=== PATIENT | female | born 1935 ===

== ENCOUNTER 2017-08-27 03:46 | Emergency (ER) | payer OTHER ==
[2017-08-27] MEDS ORDERED: OXYMETAZOLINE 30 ML NASAL SPRAY ONE (03:56)
[2017-08-27] MEDS ORDERED: LIDOCAINE HCL 4% TOPICAL SOLN 50ML MM ONE (04:09)
[2017-08-27] MEDS ORDERED: ONDANSETRON 4 MG/2 ML VIAL ONE (04:16)
[2017-08-27] MEDS ORDERED: NS 1,000 ML IV ONE (04:24)
[2017-08-27] MEDS ORDERED: ONDANSETRON 4 MG/2 ML VIAL IVP ONE (04:24)
[2017-08-27] MEDS ORDERED: NS 500 ML IV ONE (04:26)
[2017-08-27 04:28] VITALS: RESP 18
[2017-08-27 04:31] LABS: PLATELET COUNT 336 10^3/uL (150-400)
[2017-08-27 04:41] LABS: INR 3.2 (0.83-1.16); PROTIME(PATIENT) 31.8 SEC (12.0-15.0)
--- NOTE | 2017-08-27 04:51 | EDPHY ---
H & P Time Seen by Provider: 08/27/17 04:07 HPI/ROS: This patient presents with right-sided epistaxis. She reports that she had 2 episodes of spontaneous epistaxis yesterday during the day the lasted 20-30 minutes final resolved with pinching her nose. She was awakened early this morning by recurrent bleeding again from the right-sided for nose. She called her daughter who brought her in by private vehicle for evaluation. She has had occasional nosebleeds in the past and had to have her near repacked a few years ago. She has recently had coryza she attributes to a viral URI there is otherwise felt well. Prior to arrival the patient had no significant lightheadedness but she started to feel lightheaded while walking in the emergency department. ROS: Constitutional: No fevers. She denies fatigue. HEENT: No recent nasal trauma. Patient complains of nasal congestion for 1 month with onset of sinus pressure intermittently over the past 5-7 days left more than right side and yellow to green discharge. Pulmonary: No dyspnea. Cardiovascular: No heart palpitations except her baseline atrial fibrillation. No chest pain. GI: Prior to arrival no nausea or vomiting. Integumentary: No complaints Neuro: No confusion. 10 point ROS is otherwise negative Past Medical/Surgical History: Atrial fibrillation Smoking Status: Never smoked Physical Exam: Initial vital signs are normal General Appearance: Pleasant 82-year-old female appears younger than her stated age Alert, no distress. Eyes: Pupils equal and round no pallor or injection. ENT, Mouth: Mucous membranes moist. Nose: Right-sided active [id number] -moderate. The patient has left maxillary sinus tenderness to percussion more than frontal swollen nasal mucosa on the left side. Neck: Supple Respiratory: There are no retractions, lungs are clear to auscultation. Cardiovascular: Irregularly irregular with no murmur gallop or rub Gastrointestinal: Abdomen is soft and nontender, no masses, bowel sounds normal. Neurological: GCS 15 with no focal deficits. Skin: Warm and dry, no rashes. Extremities are symmetrical, full range of motion. Psychiatric: Patient is oriented X 3, there is no agitation. DIFFERENTIAL DIAGNOSIS: After history and physical exam differential diagnosis was considered for anterior versus posterior epistaxis, coagulopathy on Coumadin , anemia, thrombocytopenia, sinusitis Constitutional: Initial Vital Signs Temperature (C) 36.6 C 08/27/17 03:55 Heart Rate 98 08/27/17 03:55 Respiratory Rate 22 H 08/27/17 03:55 Blood Pressure 141/90 H 08/27/17 03:55 O2 Sat (%) 92 08/27/17 03:55 O2 Delivery Mode Room Air Allergies/Adverse Reactions: erythromycin base Allergy (Verified 08/27/17 03:53) Home Medications: Medication Instructions Recorded Amoxicillin Trihydrate [Amoxil] 500 mg PO TID #30 cap 08/27/17 Oxymetazoline HCl [Afrin Nasal 08/27/17 [place]] Tiotropium Inhaler [Spiriva 18 mcg IH DAILY 08/27/17 Hand[place]hal[place]] Warfarin Sodium [Coumadin 4MG (*)] 4 mg PO DAILY16 08/27/17 MDM/Departure - [facility] Diagnostics: 12 lead EKG performed shortly after arrival reveals atrial fibrillation at 96 Intervals: QRS of 60, QTC of 46 [place]: QRS of 73, T of 63 ST segments: Normal throughout Overall assessment atrial fibrillation with borderline prolonged QT Procedures: Procedure: Epistaxis control. After verbal consent was obtained, the patient was anesthetized with [a 50-50 mix of 4% lidocaine with 1-1000 concentration epinephrine. I sprayed this the patient's nares using 10 mL transient 20-gauge Angiocath 2 mL in the R. nares. This was followed by soaking cotton ball on the same medication and placed in the right nares for 15 minutes. On repeat exam patient has no bleeding from the septum. Hemostasis is achieved without further intervention. Following the procedure the patient was re-examined and the bleeding was well controlled. The patient tolerated the procedure well. The procedure was performed by myself. There were no complications. Medications Given: Discontinued Medications Epinephrine (Adrenalin Chloride) 1,000 mg NASAL EDNOW ONE Stop: 08/27/17 04:11 Last Admin: 08/27/17 04:25 Dose: 30 ml Sodium Chloride (Ns) 1,000 mls @ 0 mls/hr IV ONCE ONE PRN Reason: Wide Open Stop: 08/27/17 04:25 Last Admin: 08/27/17 04:26 Dose: Not Given Sodium Chloride (Ns) 500 mls @ 0 mls/hr IV ONCE ONE PRN Reason: Wide Open Stop: 08/27/17 04:27 Last Admin: 08/27/17 04:27 Dose: 500 mls Lidocaine HCl (Lidocaine Hcl 4% Topical Solution) 50 ml MM EDNOW ONE Stop: 08/27/17 04:10 Last Admin: 08/27/17 04:25 Dose: 50 ml Ondansetron HCl (Zofran) 4 mg IVP EDNOW ONE Stop: 08/27/17 04:25 Last Admin: 08/27/17 04:29 Dose: Not Given ED Course/Re-evaluation: The patient was initially placed in the triage room. Having no feeling of lightheadedness on arrival she was walked to the ENT room-7. But developed lightheadedness while walking. She had a vagal episode shortly after being placed in the ENT chair that I witnessed. We placed the patient in mild Trendelenburg and she had emesis of blood. IV was established she is given at saline bolus. She quickly recovered and felt improved with resolution of her nausea. Her SBP was in the low 90's immediately after the episode. She recovered to a normotensive status with IVF. An EKG was obtained and detailed above. A review of labs reveals no anemia and no thrombocytopenia. Her INR is 3.2 and the patient reports that her physician tries to keep her INR lower-between 2 and 2.5. She took a 2.5 mg Coumadin dose today which she alternates with 2 mg. - Depart Disposition: Home, Routine, Self-Care Clinical Impression: Anterior epistaxis Maxillary sinusitis, acute Qualifiers: Recurrence: non-recurrent Qualified Code(s): J01.00 - Acute maxillary sinusitis , unspecified Condition: Good Instructions: Sinusitis (ED), Nosebleed (ED) Additional Instructions: Diagnosis: Anterior epistaxis 2. Sinusitis. 3. Vasovagal episode Plan: Continue your humidifier Amoxil antibiotic Skip tomorrow as Coumadin dose and then plan on taking a 2 mg Coumadin dose most days, but a 2.5 mg dose on Tuesdays and . Call your primary care physician to arrange follow-up to recheck your Coumadin- INR level in 5 - 7 days. If he have recurrence of a nose bleed, lean forward over a bowl and firmly pinch the upper bridge of your nose to compress the blood vessels that supply blood to the nose. You can also try the Afrin nasal spray. These maneuvers do not stop the bleed within 2 min then return to the emergency department. Prescriptions: Amoxicillin Trihydrate [Amoxil] 500 mg PO TID #30 cap Referrals: Patient,NotPresent [Primary Care Provider] - As per Instructions
--- NOTE | 2017-08-27 04:53 | CPEKG ---
Heart Rate: 96 RR Interval: 625 QRSD Interval: 68 QT Interval: 384 QTC Interval: 486 QRS [place]: 73 T Wave [place]: 63 EKG Severity - ABNORMAL ECG - EKG Impression: ATRIAL FIBRILLATION EKG Impression: BORDERLINE PROLONGED QT INTERVAL Electronically Signed By: Bhanu Pearson 27-Aug-2017 05:28:22
[2017-08-27 05:15] VITALS: BP 118/84; PULSE 102; O2SAT 98
[2017-08-27 05:38] VITALS: TEMP 98.4
== END 2017-08-27 05:41 | disposition home or self-care (01) ==
LOC: CED 03:46
DX: R04.0 Epistaxis (principal); J01.00 Acute maxillary sinusitis, unspecified; R42 Dizziness and giddiness; Z79.01 Long term (current) use of anticoagulants
CPT/HCPCS: 85025-PO; 85610-PO; 85730-PO; J2405